=== PATIENT | male | born 1980 | race Caucasian/White ===

== ENCOUNTER 2019-02-28 15:14 | Emergency (ER) | payer BC, OTHER ==
[~2019-02-28] VITALS: Ht 182.9 cm; Wt 63.5 kg
--- NOTE | 2019-02-28 15:50 | PHYS DOC ---
Adult General Chief Complaint Chief Complaint: ALCOHOL INTOXICATION HPI HPI Patient is a 38 year old with a history of alcohol abuse presents to the ED complaining of alcohol relapse x 1 day ago. States that he got depressed and drank a pint and a half of alcohol. States he had previously been sober for 7 years. States he went to check himself into [facility] and was sent to [facility] to sober up prior to admission. No past medical history. Denies chest pain, shortness of breath, nausea/vomiting, dizziness, fever, headache, chills, abdominal pain, suicidal ideation, homicidal ideation, or auditory/visual hallucinations. (NGUYEN GUNDERSON) Review of Systems Review of Systems Constitutional: Denies fever or chills [] Eyes: Denies change in visual acuity, redness, or eye pain [] HENT: Denies nasal congestion or sore throat [] Respiratory: Denies cough or shortness of breath [] Cardiovascular: No additional information not addressed in HPI [] GI: Denies abdominal pain, nausea, vomiting, bloody stools or diarrhea [] : Denies dysuria or hematuria [] Musculoskeletal: Denies back pain or joint pain [] Integument: Denies rash or skin lesions [] Neurologic: Denies headache, focal weakness or sensory changes [] All other systems were reviewed and found to be within normal limits, except as documented in this note. (NGUYEN GUNDERSON) Current Medications Current Medications Current Medications Medications (Trade) Dose Ordered Sig/Joes Start Time Stop Time Status Last Admin Dose Admin Lorazepam (Ativan Inj) 2 mg 1X ONCE 02/28/19 23:30 02/28/19 23:31 DC 02/28/19 23:26 2 MG Ondansetron HCl (Zofran) 4 mg 1X ONCE 02/28/19 16:00 02/28/19 16:01 DC 02/28/19 15:56 4 MG Sodium Chloride 1,000 ml @ 1,000 mls/hr 1X ONCE 02/28/19 22:00 02/28/19 22:59 DC 02/28/19 22:11 1,000 MLS/HR (KATHY TOBIAS DO) Allergies Allergies Allergies Coded Allergies Type Severity Reaction Last Updated Verified ketorolac Adverse Reaction Intermediate JITTERS 02/28/19 Yes paroxetine Adverse Reaction Intermediate JITTERS 02/28/19 Yes tramadol Adverse Reaction Intermediate JITTERS 02/28/19 Yes (KATHY TOBIAS DO) Physical Exam Physical Exam Constitutional: no acute distress, non-toxic appearance. [] HENT: Normocephalic, atraumatic [] Eyes: PERRLA, EOMI, conjunctiva normal, no discharge. [] Neck: Normal range of motion, no tenderness, supple, no stridor. [] Cardiovascular:Heart rate regular rhythm, no murmur [] Lungs & Thorax: Bilateral breath sounds clear to auscultation [] Abdomen: Bowel sounds normal, soft, no tenderness, no masses, no pulsatile masses. [] Skin: Warm, dry, no erythema, no rash. [] Back: No tenderness, no CVA tenderness. [] Extremities: No tenderness, no cyanosis, no clubbing, ROM intact, no edema. [] Neurologic: Alert and oriented X 3, normal motor function, normal sensory function, no focal deficits noted. [] Psychologic: Affect normal, judgement normal, mood normal. [] (NGUYEN GUNDERSON) Current Patient Data Vital Signs Vital Signs Date Time Temp Pulse Resp B/P (MAP) Pulse Ox O2 Delivery O2 Flow Rate FiO2 02/28/19 23:30 76 106/63 (77) 96 Room Air 02/28/19 15:40 98.3 16 98.3 (KATHY TOBIAS DO) Lab Values Laboratory Tests Test 02/28/19 15:36 02/28/19 16:05 02/28/19 18:58 02/28/19 22:23 White Blood Count 3.2 x10^3/uL (4.0-11.0) L Red Blood Count 4.52 x10^6/uL (4.30-5.70) Hemoglobin 15.1 g/dL (13.0-17.5) Hematocrit 43.8 % (39.0-53.0) Mean Corpuscular Volume 97 fL (79-100) Mean Corpuscular Hemoglobin 33 pg (25-35) Mean Corpuscular Hemoglobin Concent 34 g/dL (31-37) Red Cell Distribution Width 16.1 % (11.5-14.5) H Platelet Count 193 x10^3/uL (140-400) Neutrophils (%) (Auto) 58 % (31-73) Lymphocytes (%) (Auto) 27 % (24-48) Monocytes (%) (Auto) 12 % (0-9) H Eosinophils (%) (Auto) 0 % (0-3) Basophils (%) (Auto) 2 % (0-3) Neutrophils # (Auto) 1.8 x10^3/uL (1.8-7.7) Lymphocytes # (Auto) 0.9 x10^3/uL (1.0-4.8) L Monocytes # (Auto) 0.4 x10^3/uL (0.0-1.1) Eosinophils # (Auto) 0.0 x10^3/uL (0.0-0.7) Basophils # (Auto) 0.1 x10^3/uL (0.0-0.2) Sodium Level 145 mmol/L (136-145) Potassium Level 3.7 mmol/L (3.5-5.1) Chloride Level 102 mmol/L (98-107) Carbon Dioxide Level 27 mmol/L (21-32) Anion Gap 16 (6-14) H Blood Urea Nitrogen 9 mg/dL (8-26) Creatinine 0.9 mg/dL (0.7-1.3) Estimated GFR (Cockcroft-Gault) 95.0 Glucose Level 91 mg/dL (70-99) Calcium Level 9.2 mg/dL (8.5-10.1) Salicylates Level < 2.8 mg/dL (2.8-20.0) L Salicylate Last Dose Date Unk Salicylate Last Dose Time Unk Acetaminophen Level < 2 mcg/ml (10-30) L Acetaminophen Last Dose Date Unk Acetaminophen Last Dose Time Unk Ethyl Alcohol Level 404 mg/dL (0-10) *H 332 mg/dL (0-10) H 225 mg/dL (0-10) H Urine Collection Type Unknown Urine Color Yellow Urine Clarity Clear Urine pH 6.0 Urine Specific [place] 1.010 Urine Protein 100 mg/dL (NEG-TRACE) Urine Glucose (UA) Negative mg/dL (NEG) Urine Ketones (Stick) Trace mg/dL (NEG) Urine Blood Negative (NEG) Urine Nitrite Negative (NEG) Urine Bilirubin Negative (NEG) Urine Urobilinogen Dipstick 1.0 mg/dL (0.2 mg/dL) Urine Leukocyte Esterase Negative (NEG) Urine RBC Occ /HPF (0-2) Urine WBC 1-4 /HPF (0-4) Urine Bacteria Few /HPF (0-FEW) Urine Hyaline Casts Few /HPF Urine Mucus Marked /LPF Urine Opiates Screen Neg (NEG) Urine Methadone Screen Neg (NEG) Urine Barbiturates Neg (NEG) Urine Phencyclidine Screen Neg (NEG) Urine Amphetamine/Methamphetamine Neg (NEG) Urine Benzodiazepines Screen Neg (NEG) Urine Cocaine Screen Neg (NEG) Urine Cannabinoids Screen Neg (NEG) Urine Ethyl Alcohol Pos (NEG) Laboratory Tests 02/28/19 15:36 Laboratory Tests 02/28/19 15:36 (KATHY TOBIAS DO) Lab Values Laboratory Tests Test 02/28/19 15:36 02/28/19 16:05 02/28/19 18:58 02/28/19 22:23 White Blood Count 3.2 x10^3/uL (4.0-11.0) L Red Blood Count 4.52 x10^6/uL (4.30-5.70) Hemoglobin 15.1 g/dL (13.0-17.5) Hematocrit 43.8 % (39.0-53.0) Mean Corpuscular Volume 97 fL (79-100) Mean Corpuscular Hemoglobin 33 pg (25-35) Mean Corpuscular Hemoglobin Concent 34 g/dL (31-37) Red Cell Distribution Width 16.1 % (11.5-14.5) H Platelet Count 193 x10^3/uL (140-400) Neutrophils (%) (Auto) 58 % (31-73) Lymphocytes (%) (Auto) 27 % (24-48) Monocytes (%) (Auto) 12 % (0-9) H Eosinophils (%) (Auto) 0 % (0-3) Basophils (%) (Auto) 2 % (0-3) Neutrophils # (Auto) 1.8 x10^3/uL (1.8-7.7) Lymphocytes # (Auto) 0.9 x10^3/uL (1.0-4.8) L Monocytes # (Auto) 0.4 x10^3/uL (0.0-1.1) Eosinophils # (Auto) 0.0 x10^3/uL (0.0-0.7) Basophils # (Auto) 0.1 x10^3/uL (0.0-0.2) Sodium Level 145 mmol/L (136-145) Potassium Level 3.7 mmol/L (3.5-5.1) Chloride Level 102 mmol/L (98-107) Carbon Dioxide Level 27 mmol/L (21-32) Anion Gap 16 (6-14) H Blood Urea Nitrogen 9 mg/dL (8-26) Creatinine 0.9 mg/dL (0.7-1.3) Estimated GFR (Cockcroft-Gault) 95.0 Glucose Level 91 mg/dL (70-99) Calcium Level 9.2 mg/dL (8.5-10.1) Salicylates Level < 2.8 mg/dL (2.8-20.0) L Salicylate Last Dose Date Unk Salicylate Last Dose Time Unk Acetaminophen Level < 2 mcg/ml (10-30) L Acetaminophen Last Dose Date Unk Acetaminophen Last Dose Time Unk Ethyl Alcohol Level 404 mg/dL (0-10) *H 332 mg/dL (0-10) H 225 mg/dL (0-10) H Urine Collection Type Unknown Urine Color Yellow Urine Clarity Clear Urine pH 6.0 Urine Specific [place] 1.010 Urine Protein 100 mg/dL (NEG-TRACE) Urine Glucose (UA) Negative mg/dL (NEG) Urine Ketones (Stick) Trace mg/dL (NEG) Urine Blood Negative (NEG) Urine Nitrite Negative (NEG) Urine Bilirubin Negative (NEG) Urine Urobilinogen Dipstick 1.0 mg/dL (0.2 mg/dL) Urine Leukocyte Esterase Negative (NEG) Urine RBC Occ /HPF (0-2) Urine WBC 1-4 /HPF (0-4) Urine Bacteria Few /HPF (0-FEW) Urine Hyaline Casts Few /HPF Urine Mucus Marked /LPF Urine Opiates Screen Neg (NEG) Urine Methadone Screen Neg (NEG) Urine Barbiturates Neg (NEG) Urine Phencyclidine Screen Neg (NEG) Urine Amphetamine/Methamphetamine Neg (NEG) Urine Benzodiazepines Screen Neg (NEG) Urine Cocaine Screen Neg (NEG) Urine Cannabinoids Screen Neg (NEG) Urine Ethyl Alcohol Pos (NEG) Laboratory Tests 02/28/19 15:36 Laboratory Tests 02/28/19 15:36 (NGUYEN GUNDERSON) EKG EKG [] (NGUYEN GUNDERSON) Course & Med Decision Making Course & Med Decision Making Pertinent Labs and Imaging studies reviewed. (See chart for details) []Discussed case with PAT presentation team member, Jing. She discussed case with [facility], they accept patient and would like a prescription for Librium. Patient given Ativan and 3 L of fluid in the ED. Patient well-appearing. Alcohol level dropped from 400 to 225. Patient is alert and oriented and able to ambulate with a steady gait. Patient agreeable to go to [facility]. Discussed the importance of going and reasons to return to the ED. Patient understands and agree with plan. (NGUYEN GUNDERSON) Dragon Disclaimer Dragon Disclaimer This electronic medical record was generated, in whole or in part, using a voice recognition dictation system. (NGUYEN GUNDERSON) Departure Departure Impression: Primary Impression: Alcohol intoxication Disposition: 05 TRANSFER OTHER ([facility]) Condition: IMPROVED Referrals: ARIEL GOMEZ (PCP) Patient Instructions: Alcohol Intoxication Scripts Chlordiazepoxide Hcl (CHLORDIAZEPOXIDE HCL) 25 Mg Capsule 50 MG PO TID for 10 Days, #60 CAP Prov: NGUYEN GUNDERSON 02/28/19 Attending Signature Attending Signature I have reviewed the PA/REGULATOR ASSEMBLER's note and plan of care. I was available for consultation as needed during the patient's visit in the emergency department. I agree with the clinical impression, plan, and disposition. (KATHY TOBIAS DO) NGUYEN GUNDERSON Feb 28, 2019 15:50 KATHY TOBIAS DO Mar 01, 2019 01:37
[2019-02-28] MEDS ORDERED: ONDANSETRON PF 4 MG/2 ML VIAL. IV ONE (16:00)
[2019-02-28] MEDS ORDERED: IV NORMAL SALINE 1000ML BAG 1,000 ML IV ONE ×3 (16:00→22:00)
[2019-02-28 16:02] LABS: BASO # 0.1 x10^3/uL (0.0-0.2); BASO % 2 % (0-3); EOS % 0 % (0-3); HEMATOCRIT 43.8 % (39.0-53.0); HEMOGLOBIN 15.1 g/dL (13.0-17.5); LYMPH # 0.9 x10^3/uL (1.0-4.8); LYMPH % 27 % (24-48); MEAN CORPUSCULAR HEMOGLOBIN 33 pg (25-35); MEAN CORPUSCULAR HGB CONC 34 g/dL (31-37); MEAN CORPUSCULAR VOLUME 97 fL (79-100); MONO # 0.4 x10^3/uL (0.0-1.1); MONO % 12 % (0-9); NEUT # 1.8 x10^3/uL (1.8-7.7); NEUT % 58 % (31-73); PLATELET COUNT 193 x10^3/uL (140-400); RED BLOOD COUNT 4.52 x10^6/uL (4.30-5.70); RED CELL DISTRIBUTION WIDTH 16.1 % (11.5-14.5); WHITE BLOOD COUNT 3.2 x10^3/uL (4.0-11.0)
[2019-02-28 16:04] LABS: CALCIUM 9.2 mg/dL (8.5-10.1); CREATININE 0.9 mg/dL (0.7-1.3); POTASSIUM 3.7 mmol/L (3.5-5.1)
[2019-02-28 16:11] LABS: BILIRUBIN,URINE NEGATIVE (NEG); COLOR,URINE YELLOW; NITRITE,URINE NEGATIVE (NEG); PROTEIN,URINE 100 mg/dL (NEG-TRACE)
[2019-02-28 16:15] LABS: CLARITY,URINE CLEAR
[2019-02-28 16:16] LABS: HYALINE CASTS, URINE FEW /HPF
[2019-02-28 16:17] LABS: BACTERIA,URINE FEW /HPF (0-FEW); RBC,URINE OCC /HPF (0-2)
[2019-02-28 16:17] LABS: SALIC < 2.8 mg/dL (2.8-20.0)
[2019-02-28 16:19] LABS: BARBITURATES NEG (NEG); BENZODIAZEPINES NEG (NEG); CANNABINOIDS NEG (NEG); COCAINE NEG (NEG); METHADONE NEG (NEG); OPIATES NEG (NEG); PHENCYCLIDINE NEG (NEG)
[2019-02-28 16:22] LABS: ACETAMIN < 2 mcg/ml (10-30); ETHANOL 404 mg/dL (0-10)
[2019-02-28 16:23] LABS: AMPHETAMINE/METHAMPHETAMINE NEG (NEG)
[2019-02-28] MEDS ORDERED: CHLO25CA9 PO (23:21)
[2019-02-28 23:30] VITALS: BP 106/63
== END 2019-02-28 23:40 | disposition home or self-care (01) ==
LOC: ER 15:14
DX: F10.129 Alcohol abuse with intoxication, unspecified (principal); F32.9 Major depressive disorder, single episode, unspecified; Y90.8 Blood alcohol level of 240 mg/100 ml or more; Z88.8 Allergy status to other drugs, medicaments and biological substances; Z88.5 Allergy status to narcotic agent
CPT/HCPCS: 36415; 80048; 80307; 80329; 81001; 85025; 96374; 96375; 96376; 99284; G0480; J2060; J2405; J7030

== ENCOUNTER 2020-02-17 01:38 | Emergency (ER) | payer SELFPAY ==
[~2020-02-17] VITALS: Ht 185.4 cm; Wt 70.5 kg
[~2020-02-17 01:38] MED LIST: CHLO25CA9 PO
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
[2020-02-17] MEDS: ACETAMINOPHEN 325 MG TABLET. PO ONE ×2 (02:00→02:17)
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
[2020-02-17] MEDS ORDERED: ACET1TAB33 PO (02:49)
[2020-02-17] MEDS ORDERED: ACETAMINOPHEN/CODEINE 300/30MG TABLET. PO ONE (03:15)
[2020-02-17 03:20] VITALS: BP 110/72
== END 2020-02-17 03:20 | disposition home or self-care (01) ==
LOC: ER 01:38
DX: S00.83XA Contusion of other part of head, initial encounter (principal); R55 Syncope and collapse; R60.0 Localized edema; F17.200 Nicotine dependence, unspecified, uncomplicated; F10.10 Alcohol abuse, uncomplicated; Z88.6 Allergy status to analgesic agent; Z88.8 Allergy status to other drugs, medicaments and biological substances; Y08.89XA Assault by other specified means, initial encounter; Y93.89 Activity, other specified; Y92.89 Other specified places as the place of occurrence of the external cause; Y99.8 Other external cause status
CPT/HCPCS: 70450; 70486; 99285